=== PATIENT | female | born 1970 | race American Indian/Alaskan Native ===

== ENCOUNTER 2018-10-30 19:06 | Emergency (ER) | payer MEDICARE ==
[2018-10-30 19:06] VITALS: BMI 36.6
--- NOTE | 2018-10-30 19:59 | ED PDOC ---
HPI: Psych/Substance Abuse Time Seen by Provider: 10/30/18 19:37 Chief Complaint (Nursing): Psychiatric Evaluation Chief Complaint (Provider): Psychiatric Evaluation ED Caveat: Acuity of Condition History Per: Patient, Family (ex at bedside) History/Exam Limitations: clinical condition Onset/Duration Of Symptoms: Unknown Additional Complaint(s): 48 year old female with schizophrenia presents to the ED for a psychiatric evaluation. Patient is requesting "to get her head checked" and admits to auditory hallucinations. The length of the symptoms is unknown and history is limited because the patient is a poor historian. She does not want to answer most questions and denies homicidal ideation or suicidal ideation. Ex at bedside reports patient was diagnosed with schizophrenia after her second . He notes patient frequently stops taking her medication and going to therapy, resulting in episodes like this. He further notes that patient recently lost her residence because she was not paying rent. Patient does not express any physical complaints at present. PMD: unknown Past Medical History Reviewed: Historical Data, Nursing Documentation, Vital Signs Vital Signs: Last Vital Signs Temp 98.6 F 10/30/18 19:09 Pulse 102 H 10/30/18 19:09 Resp 16 10/30/18 19:09 BP 138/82 10/30/18 19:09 Pulse Ox 98 10/30/18 19:09 Primary Care Provider: FAMILY PROVIDER,NO - Medical History PMH: Anemia, Anxiety, Bipolar Disorder, Depression, Hypothyroidism, Schizophren ia - Family History Family History: States: Unknown Family Hx - Home Medications Home Medications: Ambulatory Orders Medication Instructions Recorded traZODone [Desyrel] 50 mg PO HS #30 tab 09/29/14 Paliperidone [Invega Sustenna] 117 mg IM Q30D #1 ser 10/29/14 Ciprofloxacin [Cipro] 1 tab PO BID #14 tab 02/05/15 Ferrous Sulfate 1 tab PO DAILY 02/05/15 Levothyroxine [Synthroid] 0.1 mg PO DAILY 02/05/15 Miconazole [Miconazole 7] 100 mg VG DAILY #7 sup 02/05/15 - Allergies Allergies/Adverse Reactions: Allergies Allergy/AdvReac Type Severity Reaction Status Date / Time No Known Allergies Allergy Verified 10/30/18 19:16 Review of Systems ROS Statement: Except As Marked, All Systems Reviewed And Found Negative (limited history) Constitutional: Positive for: Other (psych eval) Psych: Negative for: Suicidal ideation, Other (homicidal ideation ) Physical Exam - Reviewed Nursing Documentation Reviewed: Yes Vital Signs Reviewed: Yes - Physical Exam Comments: GENERAL APPEARANCE: Patient is awake, alert, in no acute distress. Responding to internal stimuli. SKIN: Warm, dry; (-) cyanosis EYES: (-) conjunctival injection ENMT: Mucous membranes moist. Airway patent: (-) stridor. NECK: Supple, FROM HEART AND CARDIOVASCULAR: (-) irregularity CHEST AND RESPIRATORY: (-) rales, (-) rhonchi, (-) wheezes; breath sounds equal. Respirations even and nonlabored. ABDOMEN: Soft, (-) distention, (-) tenderness, (-) guarding. NEURO AND PSYCH: Mental status as above. Preoccupied and answering questions delayed and inappropriately. No eye contact with examiner. Affect: flat. (-) facial asymmetry. Gait: steady. - Laboratory Results Result Diagrams: 10/30/18 22:41 10/30/18 22:41 - ECG O2 Sat by Pulse Oximetry: 98 (RA) Pulse Ox Interpretation: Normal Medical Decision Making Medical Decision Making: Time: 1944 Impression: 48yo female with auditory hallucinations and schizophrenia Plan: --Crisis evaluation --Re-evaluation 2104 Crisis at bedside with patient. 2129 Per crisis evaluation, patient to be screened by [facility] per Dr Armstrong with the diagnosis of schizoaffective disorder, bipolar type. Additional orders placed for medical clearance. 2219 Patient resting comfortably. Family remains at bedside. CXR: no acute disease as read by Gil GRIFFIN. 2300 Case endorsed to Tesha Tello PA-C pending medical clearance, [facility] screening, and further disposition. ----- Scribe Attestation: Documented by Aly Hall, acting as a scribe for Winifred K Gil, PA-C. Provider Scribe Attestation: All medical record entries made by the Scribe were at my direction and personally dictated by me. I have reviewed the chart and agree that the record accurately reflects my personal performance of the history, physical exam, medical decision making, and the department course for this patient. I have also personally directed, reviewed, and agree with the discharge instructions and dis position. Disposition - Clinical Impression Clinical Impression: Schizoaffective disorder, bipolar type - Patient ED Disposition Is Patient to be Admitted: Transfer of Care (Case endorsed to Tesha Tello PA-C pending medical clearance, [facility] screening, and further disposition.) - Disposition Disposition: Transfer of Care (Case endorsed to Tesha Tello PA-C pending medical clearance, [facility] screening, and further disposition.) Disposition Time: 23:00 Condition: STABLE Forms: [facility] (Upper Sorbian) - POA Present On Arrival: None
[2018-10-30 22:44] LABS: BASO # 0.1 K/uL (0.0-0.2); BASO % 1.1 % (0.0-2.0); EOS # 0.2 K/uL (0.0-0.7); EOS % 2.9 % (0.0-4.0); MEAN CELL VOLUME 68.1 fl (81.0-99.0); MEAN CORPUSCULAR HEMOGLOBIN 21.1 pg (27.0-31.0); MEAN PLATELET VOLUME 9.6 fl (7.2-11.7); MONO # 0.6 K/uL (0.0-0.8); MONO % 6.5 % (0.0-10.0); NEUT # 3.6 K/uL (1.8-7.0); NEUT % 42.5 % (50.0-75.0); NRBC % 0.1 % (0.0-0.0); RBC 4.73 Mil/uL (3.80-5.20); RED CELL DISTRIBUTION WIDTH 19.1 % (11.5-14.5); WHITE BLOOD COUNT 8.5 K/uL (4.8-10.8)
[2018-10-30 22:49] LABS: SQUAMOUS EPITHIAL 21 /hpf (0-5); URINE BACTERIA RARE (<OCC); URINE BILIRUBIN NEGATIVE (NEGATIVE); URINE BLOOD NEGATIVE (NEGATIVE); URINE CLARITY CLOUDY (Clear); URINE COLOR YELLOW (YELLOW); URINE GLUCOSE (UA) NEG (NEGATIVE); URINE LEUKOCYTE ESTERASE NEG Leu/uL (Negative); URINE PROTEIN NEGATIVE (NEGATIVE); URINE UROBILINOGEN 0.2-1.0 mg/dL (0.2-1.0)
[2018-10-30 22:57] LABS: ALB/GLOB RATIO 1.2 (1.0-2.1); ALBUMIN 4.6 g/dL (3.5-5.0); ALT/SGPT 17 U/L (9-52); AST/SGOT 18 U/L (14-36); BLOOD UREA NITROGEN 11 mg/dl (7-17); CALCIUM 9.3 mg/dL (8.4-10.2); GFR NON-AFRICAN AMERICAN > 60
[2018-10-30 23:07] LABS: BARBITURATES, UR NEGATIVE (NEGATIVE); BENZODIAZEPINES, UR NEGATIVE (NEGATIVE); OPIATES, UR NEGATIVE (NEGATIVE); PHENCYCLIDINE, UR NEGATIVE (NEGATIVE)
--- NOTE | 2018-10-30 23:11 | ED PDOC ---
- Laboratory Results Result Diagrams: 10/30/18 22:41 10/30/18 22:41 Lab Results: Total Bilirubin 0.3 mg/dl (0.2-1.3) 10/30/18 22:41 AST 18 U/L (14-36) 10/30/18 22:41 ALT 17 U/L (9-52) 10/30/18 22:41 Alkaline Phosphatase 103 U/L (38-126) 10/30/18 22:41 Total Protein 8.6 G/DL (6.3-8.2) H 10/30/18 22:41 Albumin 4.6 g/dL (3.5-5.0) 10/30/18 22:41 Globulin 4.0 gm/dL (2.2-3.9) H 10/30/18 22:41 Albumin/Globulin Ratio 1.2 (1.0-2.1) 10/30/18 22:41 Urine Color Yellow (YELLOW) 10/30/18 22:41 Urine Clarity Cloudy (Clear) 10/30/18 22:41 Urine pH 7.0 (5.0-8.0) 10/30/18 22:41 Ur Specific [place] 1.011 (1.003-1.030) 10/30/18 22:41 Urine Protein Negative mg/dL (NEGATIVE) 10/30/18 22:41 Urine Glucose (UA) Neg mg/dL (NEGATIVE) 10/30/18 22:41 Urine Ketones Negative mg/dL (NEGATIVE) 10/30/18 22:41 Urine Blood Negative (NEGATIVE) 10/30/18 22:41 Urine Nitrate Negative (NEGATIVE) 10/30/18 22:41 Urine Bilirubin Negative (NEGATIVE) 10/30/18 22:41 Urine Urobilinogen 0.2-1.0 mg/dL (0.2-1.0) 10/30/18 22:41 Ur Leukocyte Esterase Neg [place]/uL (Negative) 10/30/18 22:41 Urine RBC (Auto) 1 /hpf (0-3) 10/30/18 22:41 Urine Microscopic WBC 2 /hpf (0-5) 10/30/18 22:41 Ur Squamous Epith Cells 21 /hpf (0-5) H 10/30/18 22:41 Urine Bacteria Rare (<OCC) 10/30/18 22:41 - ECG ECG: Positive for: Viewed By Me (reviewed by ED attending) ECG Rhythm: Positive for: Sinus Rhythm O2 Sat by Pulse Oximetry: 98 (RA) - Progress ED Course And Treament: Case endorsed to video game script writer from Gil GRIFFIN pending labs, EKG, [facility] screening 00:30 Patient sleeping; no distress 2:00 Patient awake. [facility] at bedside 2:30 ironworker foreman given dispo to video game script writer that patient was accepted by [facility] pending available bed 4:00 Patient sleeping; no distress <Fatou Tello - Last Filed: 10/31/18 04:45> - Laboratory Results Result Diagrams: 10/30/18 22:41 10/30/18 22:41 Lab Results: Total Bilirubin 0.3 mg/dl (0.2-1.3) 10/30/18 22:41 AST 18 U/L (14-36) 10/30/18 22:41 ALT 17 U/L (9-52) 10/30/18 22:41 Alkaline Phosphatase 103 U/L (38-126) 10/30/18 22:41 Total Protein 8.6 G/DL (6.3-8.2) H 10/30/18 22:41 Albumin 4.6 g/dL (3.5-5.0) 10/30/18 22:41 Globulin 4.0 gm/dL (2.2-3.9) H 10/30/18 22:41 Albumin/Globulin Ratio 1.2 (1.0-2.1) 10/30/18 22:41 Urine Color Yellow (YELLOW) 10/30/18 22:41 Urine Clarity Cloudy (Clear) 10/30/18 22:41 Urine pH 7.0 (5.0-8.0) 10/30/18 22:41 Ur Specific [place] 1.011 (1.003-1.030) 10/30/18 22:41 Urine Protein Negative mg/dL (NEGATIVE) 10/30/18 22:41 Urine Glucose (UA) Neg mg/dL (NEGATIVE) 10/30/18 22:41 Urine Ketones Negative mg/dL (NEGATIVE) 10/30/18 22:41 Urine Blood Negative (NEGATIVE) 10/30/18 22:41 Urine Nitrate Negative (NEGATIVE) 10/30/18 22:41 Urine Bilirubin Negative (NEGATIVE) 10/30/18 22:41 Urine Urobilinogen 0.2-1.0 mg/dL (0.2-1.0) 10/30/18 22:41 Ur Leukocyte Esterase Neg [place]/uL (Negative) 10/30/18 22:41 Urine RBC (Auto) 1 /hpf (0-3) 10/30/18 22:41 Urine Microscopic WBC 2 /hpf (0-5) 10/30/18 22:41 Ur Squamous Epith Cells 21 /hpf (0-5) H 10/30/18 22:41 Urine Bacteria Rare (<OCC) 10/30/18 22:41 <Dajuan Ashby - Last Filed: 10/31/18 06:57> Medical Decision Making Medical Decision Makin:10 Patient medically stable for psych admission <Fatou Tello - Last Filed: 10/31/18 04:45> Medical Decision Makin PAtient resting comfortably, no acute changes Will endorse to Dr. Chávez pending [facility] bed availability <Dajuan Ashby - Last Filed: 10/31/18 06:57> Disposition - POA Present On Arrival: None - Disposition Disposition: Transfer of Care Disposition Time: 05:00 Patient Signed Over To: Dajuan Ashby Handoff Comments: pending available bed and transfer to [facility] <Fatou Tello - Last Filed: 10/31/18 04:45> - POA Present On Arrival: None - Disposition Disposition: Transfer of Care Disposition Time: 07:00 Patient Signed Over To: Alyse Chávez <Dajuan Ashby - Last Filed: 10/31/18 06:57> - Clinical Impression Clinical Impression: Schizoaffective disorder, bipolar type - Disposition Condition: STABLE Forms: [facility] (Kiswahili)
--- NOTE | 2018-10-31 07:26 | ED PDOC ---
- Laboratory Results Result Diagrams: 10/30/18 22:41 10/30/18 22:41 Lab Results: Total Bilirubin 0.3 mg/dl (0.2-1.3) 10/30/18 22:41 AST 18 U/L (14-36) 10/30/18 22:41 ALT 17 U/L (9-52) 10/30/18 22:41 Alkaline Phosphatase 103 U/L (38-126) 10/30/18 22:41 Total Protein 8.6 G/DL (6.3-8.2) H 10/30/18 22:41 Albumin 4.6 g/dL (3.5-5.0) 10/30/18 22:41 Globulin 4.0 gm/dL (2.2-3.9) H 10/30/18 22:41 Albumin/Globulin Ratio 1.2 (1.0-2.1) 10/30/18 22:41 Urine Color Yellow (YELLOW) 10/30/18 22:41 Urine Clarity Cloudy (Clear) 10/30/18 22:41 Urine pH 7.0 (5.0-8.0) 10/30/18 22:41 Ur Specific [place] 1.011 (1.003-1.030) 10/30/18 22:41 Urine Protein Negative mg/dL (NEGATIVE) 10/30/18 22:41 Urine Glucose (UA) Neg mg/dL (NEGATIVE) 10/30/18 22:41 Urine Ketones Negative mg/dL (NEGATIVE) 10/30/18 22:41 Urine Blood Negative (NEGATIVE) 10/30/18 22:41 Urine Nitrate Negative (NEGATIVE) 10/30/18 22:41 Urine Bilirubin Negative (NEGATIVE) 10/30/18 22:41 Urine Urobilinogen 0.2-1.0 mg/dL (0.2-1.0) 10/30/18 22:41 Ur Leukocyte Esterase Neg [place]/uL (Negative) 10/30/18 22:41 Urine RBC (Auto) 1 /hpf (0-3) 10/30/18 22:41 Urine Microscopic WBC 2 /hpf (0-5) 10/30/18 22:41 Ur Squamous Epith Cells 21 /hpf (0-5) H 10/30/18 22:41 Urine Bacteria Rare (<OCC) 10/30/18 22:41 - ECG O2 Sat by Pulse Oximetry: 98 (RA) Pulse Ox Interpretation: Normal Medical Decision Making Medical Decision Makin Patient signed out to me by Dr. Ashby pending [facility] bed availability 0900 Patient resting in room, is in no acute distress 1100 Patient resting in room, vitals stable Patient still pending [facility] bed availability. [address] Gorman at bedside 1400 Patient resting in room, pending [facility] bed availability. [address] Patient signed out to Dr. Cardoza pending [facility] bed availability. ScribeAttestation: Documented byMaddy Bruner acting as a scribe for Alyse Chávez MD. Provider ScribeAttestation: All medical record entries made by the Scribe were at my direction and personally dictated by me. I have reviewed the chart and agree that the record accurately reflects my personal performance of the history, physical exam, medical decision making, and the department course for this patient. I have also personally directed, reviewed, and agree with the discharge instructions and disposition. Disposition - Clinical Impression Clinical Impression: Schizoaffective disorder, bipolar type - POA Present On Arrival: None - Disposition Disposition: Transfer of Care Disposition Time: 15:00 Condition: STABLE Forms: [facility] (Uzbek) Patient Signed Over To: Uche Cardoza
--- NOTE | 2018-10-31 08:26 | RAD ---
Date of service: 10/30/2018 HISTORY: psych clearance COMPARISON: No prior. TECHNIQUE: 1 view obtained. FINDINGS: LUNGS: No active pulmonary disease. Improved inspiratory volume. PLEURA: No significant pleural effusion identified, no pneumothorax apparent. CARDIOVASCULAR: No aortic atherosclerotic calcification present. Normal cardiac size. No pulmonary vascular congestion. OSSEOUS STRUCTURES: No significant abnormalities. VISUALIZED UPPER ABDOMEN: Normal. OTHER FINDINGS: None. IMPRESSION: No interval acute cardiopulmonary disease appreciated.
--- NOTE | 2018-10-31 08:56 | CARD ---
APPROVED REPORT Date of service: 10/30/2018 EKG Measurement Heart [id number] <Conclusion> Normal sinus rhythm Normal ECG
--- NOTE | 2018-10-31 12:37 | CP.PCM.CON ---
History of Present Illness - History of Present Illness History of Present Illness: pt is 48 ys old female with previous diagnosis of schizoaffective disorder brought to ER due to psychotic and disorganized behaviour in context of non compliance with medications pt on evaluation, presenting with under productive speech, observed talking to self responding to internal stimuli , with thought blocking, pt has no insight into illness, does not believe she needs medication or treatment Past Patient History - Infectious Disease Hx of Infectious Diseases: None - Tetanus Immunizations Tetanus Immunization: Unknown - Past Social History Smoking Status: Never Smoked - CARDIAC Hx Hypertension: No - PULMONARY Hx Tuberculosis: No - NEUROLOGICAL Hx Seizures: No - HEENT Hx HEENT Problems: No - RENAL Hx Chronic Kidney Disease: No - ENDOCRINE/METABOLIC Hx Hypothyroidism: Yes - HEMATOLOGICAL/ONCOLOGICAL Hx Anemia: Yes Hx Human Immunodeficiency Virus (HIV): No - INTEGUMENTARY Hx Dermatological Problems: No - MUSCULOSKELETAL/RHEUMATOLOGICAL Hx Musculoskeletal Disorders: No - GASTROINTESTINAL Hx Gastrointestinal Disorders: No - GENITOURINARY/GYNECOLOGICAL Hx Sexually Transmitted Disorders: No - PSYCHIATRIC Hx Anxiety: Yes Hx Bipolar Disorder: Yes Hx Depression: Yes Hx Schizophrenia: Yes - SURGICAL HISTORY Hx Surgeries: No - ANESTHESIA Hx Anesthesia: No Meds Allergies/Adverse Reactions: Allergies Allergy/AdvReac Type Severity Reaction Status Date / Time No Known Allergies Allergy Verified 10/30/18 19:16 Results - Vital Signs Recent Vital Signs: Last Vital Signs Temp 98.3 F 10/31/18 07:53 Pulse 89 10/31/18 07:53 Resp 16 10/31/18 07:53 BP 150/100 H 10/31/18 07:53 Pulse Ox 98 10/31/18 09:23 - Labs Result Diagrams: 10/30/18 22:41 10/30/18 22:41 Labs: Laboratory Results - last 24 hr 10/30/18 10/30/18 10/30/18 22:41 22:41 22:41 WBC 8.5 RBC 4.73 Hgb 10.0 L Hct 32.3 L MCV 68.1 L MCH 21.1 L MCHC 31.0 L RDW 19.1 H Plt Count 331 MPV 9.6 Neut % (Auto) 42.5 L Lymph % (Auto) 47.0 H [place] % (Auto) 6.5 Eos % (Auto) 2.9 Baso % (Auto) 1.1 Neut # (Auto) 3.6 Lymph # (Auto) 4.0 [place] # (Auto) 0.6 Eos # (Auto) 0.2 Baso # (Auto) 0.1 Sodium 139 Potassium 3.6 Chloride 100 Carbon Dioxide 26 Anion Gap 17 BUN 11 Creatinine 0.7 Est GFR ( Amer) > 60 Est GFR (Non-Af Amer) > 60 Random Glucose 107 H Calcium 9.3 Total Bilirubin 0.3 AST 18 ALT 17 Alkaline Phosphatase 103 Total Protein 8.6 H Albumin 4.6 Globulin 4.0 H Albumin/Globulin Ratio 1.2 Urine Color Urine Clarity Urine pH Ur Specific [place] Urine Protein Urine Glucose (UA) Urine Ketones Urine Blood Urine Nitrate Urine Bilirubin Urine Urobilinogen Ur Leukocyte Esterase Urine RBC (Auto) Urine Microscopic WBC Ur Squamous Epith Cells Urine Bacteria Urine Opiates Screen Negative Urine Methadone Screen Negative Ur Barbiturates Screen Negative Ur Phencyclidine Scrn Negative Ur Amphetamines Screen Negative U Benzodiazepines Scrn Negative U Oth Cocaine Metabols Negative U Cannabinoids Screen Negative Alcohol, Quantitative < 10 10/30/18 22:41 WBC RBC Hgb Hct MCV MCH MCHC RDW Plt Count MPV Neut % (Auto) Lymph % (Auto) [place] % (Auto) Eos % (Auto) Baso % (Auto) Neut # (Auto) Lymph # (Auto) [place] # (Auto) Eos # (Auto) Baso # (Auto) Sodium Potassium Chloride Carbon Dioxide Anion Gap BUN Creatinine Est GFR ( Amer) Est GFR (Non-Af Amer) Random Glucose Calcium Total Bilirubin AST ALT Alkaline Phosphatase Total Protein Albumin Globulin Albumin/Globulin Ratio Urine Color Yellow Urine Clarity Cloudy Urine pH 7.0 Ur Specific [place] 1.011 Urine Protein Negative Urine Glucose (UA) Neg Urine Ketones Negative Urine Blood Negative Urine Nitrate Negative Urine Bilirubin Negative Urine Urobilinogen 0.2-1.0 Ur Leukocyte Esterase Neg Urine RBC (Auto) 1 Urine Microscopic WBC 2 Ur Squamous Epith Cells 21 H Urine Bacteria Rare Urine Opiates Screen Urine Methadone Screen Ur Barbiturates Screen Ur Phencyclidine Scrn Ur Amphetamines Screen U Benzodiazepines Scrn U Oth Cocaine Metabols U Cannabinoids Screen Alcohol, Quantitative Assessment & Plan - Assessment and Plan (Free Text) Assessment: schizoaffective disorder bipolar type Plan: pt at current mental status has no insight into illness refusing admission voluntary to psychiatric unit for treatment pt screened and accepted for involuntary admission awaiting bed at [facility]
--- NOTE | 2018-10-31 15:10 | ED PDOC ---
- Laboratory Results Result Diagrams: 10/30/18 22:41 10/30/18 22:41 Lab Results: Total Bilirubin 0.3 mg/dl (0.2-1.3) 10/30/18 22:41 AST 18 U/L (14-36) 10/30/18 22:41 ALT 17 U/L (9-52) 10/30/18 22:41 Alkaline Phosphatase 103 U/L (38-126) 10/30/18 22:41 Total Protein 8.6 G/DL (6.3-8.2) H 10/30/18 22:41 Albumin 4.6 g/dL (3.5-5.0) 10/30/18 22:41 Globulin 4.0 gm/dL (2.2-3.9) H 10/30/18 22:41 Albumin/Globulin Ratio 1.2 (1.0-2.1) 10/30/18 22:41 Urine Color Yellow (YELLOW) 10/30/18 22:41 Urine Clarity Cloudy (Clear) 10/30/18 22:41 Urine pH 7.0 (5.0-8.0) 10/30/18 22:41 Ur Specific [place] 1.011 (1.003-1.030) 10/30/18 22:41 Urine Protein Negative mg/dL (NEGATIVE) 10/30/18 22:41 Urine Glucose (UA) Neg mg/dL (NEGATIVE) 10/30/18 22:41 Urine Ketones Negative mg/dL (NEGATIVE) 10/30/18 22:41 Urine Blood Negative (NEGATIVE) 10/30/18 22:41 Urine Nitrate Negative (NEGATIVE) 10/30/18 22:41 Urine Bilirubin Negative (NEGATIVE) 10/30/18 22:41 Urine Urobilinogen 0.2-1.0 mg/dL (0.2-1.0) 10/30/18 22:41 Ur Leukocyte Esterase Neg [place]/uL (Negative) 10/30/18 22:41 Urine RBC (Auto) 1 /hpf (0-3) 10/30/18 22:41 Urine Microscopic WBC 2 /hpf (0-5) 10/30/18 22:41 Ur Squamous Epith Cells 21 /hpf (0-5) H 10/30/18 22:41 Urine Bacteria Rare (<OCC) 10/30/18 22:41 - ECG O2 Sat by Pulse Oximetry: 98 (RA) Pulse Ox Interpretation: Normal Medical Decision Making Medical Decision Makin Patient signed out to me by Dr. Chávez pending [facility] evaluation Patient resting in room, comfortable. ScribeAttestation: Documented byMaddy Bruner acting as a scribe for Uche Cardoza MD. Provider ScribeAttestation: All medical record entries made by the Scribe were at my direction and personally dictated by me. I have reviewed the chart and agree that the record accurately reflects my personal performance of the history, physical exam, medical decision making, and the department course for this patient. I have also personally directed, reviewed, and agree with the discharge instructions and disposition. 2340: Stable. AAOx3. Transfer to [facility]. Disposition - Clinical Impression Clinical Impression: Schizoaffective disorder, bipolar type - POA Present On Arrival: None - Disposition Disposition: Other Institution Disposition Time: 23:40 Condition: STABLE
[2018-10-31 20:46] VITALS: PULSE 86; RESP 18; TEMP 98.4
[2018-11-01 00:51] VITALS: BP 145/87; O2SAT 100
== END 2018-11-01 | disposition short-term general hospital (02) ==
LOC: H.ER 19:06
DX: F25.0 Schizoaffective disorder, bipolar type (principal); Z91.14 Patient's other noncompliance with medication regimen; F41.9 Anxiety disorder, unspecified; D64.9 Anemia, unspecified; E03.9 Hypothyroidism, unspecified
CPT/HCPCS: 71045; 80053; 81003; 81025; 85025; 93005; 99284; G0480